=== PATIENT | male | born 1960 | race Hispanic/Latino ===

== ENCOUNTER 2016-08-28 09:03 | Emergency (ER) | payer MEDICARE ==
[2016-08-28 09:03] VITALS: BMI 24.3
[2016-08-28 09:09] VITALS: RESP 20
--- NOTE | 2016-08-28 09:18 | ED PDOC ---
HPI: General Adult Time Seen by Provider: 08/28/16 09:13 Chief Complaint (Provider): cough with sputum History Per: Patient History/Exam Limitations: no limitations Additional Complaint(s): 56yo male w/ Hx HIV, Hep C comes to the ED for several days of body aches. Also reports cough with white-green sputum, nasal congestion, runny nose. He has nausea & vomit but no diarrhea. States he has decreased appetite. States he's been taking with Advil without relief. Patient is in a methadone program. States he is compliant with all medications prescribe to him. PMD: Anshul Past Medical History Reviewed: Historical Data, Nursing Documentation, Vital Signs Vital Signs: Last Vital Signs Temp 100.0 F H 08/28/16 09:08 Pulse 120 H 08/28/16 09:08 Resp 20 08/28/16 09:08 BP 135/114 H 08/28/16 09:08 Pulse Ox 98 08/28/16 09:22 - Medical History PMH: Anxiety, Back Problems, CAD, Cardia Arrhythmia, Depression, Hepatitis (C), HIV, HTN, Hypercholesterolemia, Hyperlipidemia, Pulmonary Embolism - Surgical History Surgical History: Coronary Stent - Family History Family History: States: Unknown Family Hx - Home Medications Home Medications: Ambulatory Orders Medication Instructions Recorded ALPRAZolam [Xanax] 1 mg PO PRN PRN 11/14/15 Dolutegravir Sodium [Tivicay] 50 mg PO DAILY 11/14/15 Emtricitabine/Tenofovir Diso 1 tab PO DAILY 11/14/15 [Truvada 200 MG-300 MG] Ezetimibe [Zetia] 10 mg PO HS 11/14/15 Docusate [Colace] 100 mg PO BID #20 cap 12/05/15 traMADol [Ultram] 50 mg PO TID PRN #30 tab 12/05/15 Azithromycin [Zithromax] 250 mg PO DAILY #6 tab 05/04/16 Promethazine/Codeine 5 ml PO Q8 #60 ml 05/04/16 [Codeine/Promethazine 10 MG/5 Ml-6.25 MG/5 Ml] Azithromycin [Zithromax] 250 mg PO DAILY 5 Days 08/28/16 Ibuprofen [Motrin] 600 mg PO TID 7 Days 08/28/16 - Allergies Allergies/Adverse Reactions: Allergies Allergy/AdvReac Type Severity Reaction Status Date / Time No Known Allergies Allergy Verified 05/04/16 09:59 Review of Systems ROS Statement: Except As Marked, All Systems Reviewed And Found Negative Constitutional: Positive for: Fever ENT: Positive for: Nose Congestion Cardiovascular: Negative for: Chest Pain Respiratory: Positive for: Cough, Sputum. Negative for: Shortness of Breath Gastrointestinal: Positive for: Nausea, Vomiting. Negative for: Diarrhea Physical Exam - Reviewed Nursing Documentation Reviewed: Yes Vital Signs Reviewed: Yes - Physical Exam Appears: Positive for: Well, Non-toxic, No Acute Distress Head Exam: Positive for: ATRAUMATIC, NORMAL INSPECTION, NORMOCEPHALIC Skin: Positive for: Warm, Dry Eye Exam: Positive for: EOMI, PERRL Cardiovascular/Chest: Positive for: Regular Rate, Rhythm Respiratory: Positive for: Normal Breath Sounds. Negative for: Rales, Rhonchi, Wheezing - ECG O2 Sat by Pulse Oximetry: 98 (RA) Pulse Ox Interpretation: Normal Medical Decision Making Medical Decision Makin: Will give Motrin 600mg in the ED. Will give Rx Z-Jorge L. Disposition - Clinical Impression Clinical Impression: URI (upper respiratory infection) - Patient ED Disposition Is Patient to be Admitted: No Counseled Patient/Family Regarding: Diagnosis, Need For Followup, Rx Given - Disposition Referrals: [facility] [Outside] - 08/29/16 Disposition: Routine/Home Disposition Time: 09:23 Condition: STABLE Additional Instructions: Return if not better in 3 days. Prescriptions: Azithromycin [Zithromax] 250 mg PO DAILY 5 Days Ibuprofen [Motrin] 600 mg PO TID 7 Days Instructions: Upper Respiratory Infection (ED) Forms: [facility] ED School/Work Excuse Additional Comments - Additional Comments Additional Comments: Scribe Attestation: Documented by Poncho Cooper acting as a scribe for Tasha Bass MD. Provider Scribe Attestation: All medical record entries made by the Scribe were at my direction and personally dictated by me. I have reviewed the chart and agree that the record accurately reflects my personal performance of the history, physical exam, medical decision making, and the department course for this patient. I have also personally directed, reviewed, and agree with the discharge instructions and disposition.
[2016-08-28 10:36] VITALS: TEMP 99
[2016-08-28 10:52] VITALS: BP 137/81; PULSE 74; O2SAT 96
== END 2016-08-28 10:50 | disposition home or self-care (01) ==
LOC: H.ER 09:03
DX: J06.9 Acute upper respiratory infection, unspecified (principal); B19.20 Unspecified viral hepatitis C without hepatic coma; E78.00 Pure hypercholesterolemia, unspecified; F41.9 Anxiety disorder, unspecified; I10 Essential (primary) hypertension; I25.10 Atherosclerotic heart disease of native coronary artery without angina pectoris; Z86.711 Personal history of pulmonary embolism; Z95.5 Presence of coronary angioplasty implant and graft